=== PATIENT | male | born 1965 | race Caucasian/White ===

== ENCOUNTER 2017-05-24 19:18 | Emergency (ER) | payer OTHER ==
[~2017-05-24] VITALS: Ht 172.7 cm; Wt 63.5 kg
[~2017-05-24 19:18] MED LIST: DOXY100 PO; HYDACE5 PO; IBUP200
[2017-05-24 19:48] LABS: BASOPHILS ABSOLUTE AUTO 0.04 K/mm3 (0.00-0.23); BASOPHILS PERCENT AUTO 0 % (0-2); EOSINOPHILS ABSOLUTE AUTO 0.12 K/mm3 (0.00-0.68); EOSINOPHILS PERCENT AUTO 1 % (0-6); Hematocrit 40.4 % (37.0-53.0); IMMATURE GRAN ABSOLUTE AUTO 0.06 K/mm3 (0.00-0.10); IMMATURE GRAN PERCENT AUTO 1 % (0-1); LYMPHOCYTES ABSOLUTE AUTO 1.65 K/mm3 (0.84-5.20); LYMPHOCYTES PERCENT AUTO 16 % (21-46); MONOCYTES ABSOLUTE AUTO 1.16 K/mm3 (0.16-1.47); MONOCYTES PERCENT AUTO 12 % (4-13); Mean Corpuscular HGB Conc 32.2 g/dL (31.5-36.5); Mean Corpuscular Volume 93 fL (80-100); NEUTROPHILS ABSOLUTE AUTO 7.03 K/mm3 (1.96-9.15); NEUTROPHILS PERCENT AUTO 70 % (41-73); RDW Coefficient Variation 14.8 % (11.7-14.2); RDW Standard Deviation 51.1 fL (35.1-46.3); Red Blood Cell Count 4.34 M/mm3 (4.30-5.90); White Blood Cell Count 10.06 K/mm3 (4.00-11.30)
[2017-05-24 20:00] LABS: Platelet Count 48 K/mm3 (150-400)
[2017-05-24 20:03] LABS: Alanine Aminotransfer (ALT/SGP 104 U/L (12-78); Albumin, Blood 3.4 g/dL (3.4-5.0); Albumin/Globulin Ratio 0.8 (0.8-1.8); Alk Phos 63 U/L (50-136); Anion Gap 17 mmol/L (6-16); Aspartate Aminotrans (AST/SGOT 75 U/L (12-37); Bilirubin, Total 0.7 mg/dL (0.1-1.0); Blood Urea Nitrogen 7 mg/dL (8-24); Bun/Creatinine Ratio 9.3 (12.0-20.0); CO2, Blood 19 mmol/L (21-32); Calcium, Blood 9.4 mg/dL (8.5-10.1); Chloride, Blood 104 mmol/L (98-108); Creatinine, Blood 0.76 mg/dL (0.60-1.20); Globulin, Blood 4.5 g/dL (2.2-4.0); Glomerular Filtration Rate >60 (60-); Glucose, Blood 114 mg/dL (70-99); Potassium, Blood 3.3 mmol/L (3.5-5.5); Sodium, Blood 140 mmol/L (136-145); Total Protein, Blood 7.9 g/dL (6.4-8.2)
== END 2017-05-24 22:50 | disposition home or self-care (01) ==
LOC: ER 19:18
PROVIDERS: Emergency Medicine
DX: S01.01XA Laceration without foreign body of scalp, initial encounter (principal); E87.6 Hypokalemia; F10.239 Alcohol dependence with withdrawal, unspecified; W22.8XXA Striking against or struck by other objects, initial encounter
CPT/HCPCS: 12002; 70450; 80053; 82947; 85025; 93005; 93010; 99284

== ENCOUNTER 2017-06-08 08:27 | Emergency (ER) | payer OTHER ==
[~2017-06-08] VITALS: Ht 172.7 cm; Wt 65.8 kg
== END 2017-06-08 09:26 | disposition home or self-care (01) ==
LOC: ER 08:27
DX: S01.01XD Laceration without foreign body of scalp, subsequent encounter (principal); F17.200 Nicotine dependence, unspecified, uncomplicated; X58.XXXD Exposure to other specified factors, subsequent encounter
CPT/HCPCS: 99281

== ENCOUNTER 2020-03-18 15:02 | Emergency (ER) | payer OTHER ==
[~2020-03-18] VITALS: Ht 172.7 cm; Wt 65.8 kg
[2020-03-18] MEDS ORDERED: IBU800 MG PO (16:02)
[2020-03-18] MEDS ORDERED: HYDR1TAB94 PO (16:02)
== END 2020-03-18 16:14 | disposition home or self-care (01) ==
LOC: ER 15:02
DX: S82.62XA Displaced fracture of lateral malleolus of left fibula, initial encounter for closed fracture (principal); F17.210 Nicotine dependence, cigarettes, uncomplicated; X50.1XXA Overexertion from prolonged static or awkward postures, initial encounter; Y92.008 Other place in unspecified non-institutional (private) residence as the place of occurrence of the external cause
CPT/HCPCS: 29515; 73610; 99283-25; A9270-GY

== ENCOUNTER 2020-07-26 13:06 | Emergency (ER) | payer OTHER ==
[~2020-07-26] VITALS: Ht 172.7 cm; Wt 79.4 kg
[~2020-07-26 13:06] MED LIST changes: +HYDR1TAB94 PO; +IBU800 MG PO
[2020-07-26] MEDS ORDERED: Norco 5-325 Ta1 EACH PO (15:13)
== END 2020-07-26 15:30 | disposition home or self-care (01) ==
LOC: ER 13:06
DX: M54.2 Cervicalgia (principal); V29.9XXA Motorcycle rider (driver) (passenger) injured in unspecified traffic accident, initial encounter; V19.9XXA Pedal cyclist (driver) (passenger) injured in unspecified traffic accident, initial encounter; Y92.410 Unspecified street and highway as the place of occurrence of the external cause
CPT/HCPCS: 72040; 72100; 72170; 90471; 90714; 96374; 99284-25; J1885

== ENCOUNTER 2022-02-02 20:44 | Emergency (ER) | payer OTHER ==
[~2022-02-02] VITALS: Ht 172.7 cm; Wt 74.8 kg
[~2022-02-02 20:44] MED LIST changes: +Norco 5-325 Ta1 EACH PO
[2022-02-02 21:34] LABS: BASOPHILS ABSOLUTE AUTO 0.09 K/mm3 (0.00-0.23); BASOPHILS PERCENT AUTO 1 % (0-2); EOSINOPHILS ABSOLUTE AUTO 0.15 K/mm3 (0.00-0.68); EOSINOPHILS PERCENT AUTO 1 % (0-6); Hematocrit 36.7 % (37.0-53.0); Hemoglobin 11.5 g/dL (13.5-17.5); IMMATURE GRAN ABSOLUTE AUTO 0.15 K/mm3 (0.00-0.10); IMMATURE GRAN PERCENT AUTO 1 % (0-1); LYMPHOCYTES ABSOLUTE AUTO 1.94 K/mm3 (0.84-5.20); LYMPHOCYTES PERCENT AUTO 18 % (21-46); MONOCYTES ABSOLUTE AUTO 1.14 K/mm3 (0.16-1.47); MONOCYTES PERCENT AUTO 11 % (4-13); Mean Corpuscular HGB 29.3 pg (26.0-34.0); Mean Corpuscular HGB Conc 31.3 g/dL (31.5-36.5); Mean Corpuscular Volume 93 fL (80-100); Mean Platelet Volume 9.4 fL (9.1-12.4); NEUTROPHILS ABSOLUTE AUTO 7.18 K/mm3 (1.96-9.15); NEUTROPHILS PERCENT AUTO 68 % (41-73); Platelet Count 257 K/mm3 (150-400); RDW Coefficient Variation 16.2 % (11.7-14.2); RDW Standard Deviation 55.9 fL (35.1-46.3); Red Blood Cell Count 3.93 M/mm3 (4.30-5.90); White Blood Cell Count 10.65 K/mm3 (4.00-11.30)
[2022-02-02 21:53] LABS: Albumin, Blood 3.7 g/dL (3.4-5.0); Albumin/Globulin Ratio 0.9 (0.8-1.8); Bilirubin, Total 0.2 mg/dL (0.1-1.0); Bun/Creatinine Ratio 11.7 (12.0-20.0); Creatinine, Blood 0.6 mg/dL (0.60-1.20); Globulin, Blood 4.2 g/dL (2.2-4.0); Potassium, Blood 3.9 mmol/L (3.5-5.5); Total Protein, Blood 7.9 g/dL (6.4-8.2)
== END 2022-02-03 00:15 | disposition short-term general hospital (02) ==
LOC: ER 20:44
PROVIDERS: Emergency Medicine
DX: S02.0XXA Fracture of vault of skull, initial encounter for closed fracture (principal); S02.19XA Other fracture of base of skull, initial encounter for closed fracture; S06.5X0A Traumatic subdural hemorrhage without loss of consciousness, initial encounter; J44.9 Chronic obstructive pulmonary disease, unspecified; Z87.891 Personal history of nicotine dependence; W10.9XXA Fall (on) (from) unspecified stairs and steps, initial encounter; Y92.009 Unspecified place in unspecified non-institutional (private) residence as the place of occurrence of the external cause
CPT/HCPCS: 36415; 70450; 70486; 71045; 72125; 73030; 80053; 85025; 90714; 93005; 93010; G0480; J0690; J1170; J2405

== ENCOUNTER 2023-01-24 12:20 | Emergency (ER) | payer OTHER ==
[~2023-01-24] VITALS: Ht 172.7 cm; Wt 77.1 kg
[~2023-01-24 12:20] MED LIST changes: +CYCL10 PO; +IBUP200 PO
[2023-01-24 13:15] LABS: BASOPHILS ABSOLUTE AUTO 0.06 K/mm3 (0.00-0.23); BASOPHILS PERCENT AUTO 1 % (0-2); EOSINOPHILS ABSOLUTE AUTO 0.15 K/mm3 (0.00-0.68); EOSINOPHILS PERCENT AUTO 1 % (0-6); Hematocrit 38.2 % (37.0-53.0); Hemoglobin 11.6 g/dL (13.5-17.5); IMMATURE GRAN PERCENT AUTO 1 % (0-1); LYMPHOCYTES ABSOLUTE AUTO 0.93 K/mm3 (0.84-5.20); LYMPHOCYTES PERCENT AUTO 9 % (21-46); MONOCYTES PERCENT AUTO 8 % (4-13); Mean Corpuscular HGB 25.2 pg (26.0-34.0); Mean Corpuscular HGB Conc 30.4 g/dL (31.5-36.5); Mean Corpuscular Volume 83 fL (80-100); Mean Platelet Volume 9.5 fL (9.1-12.4); NEUTROPHILS ABSOLUTE AUTO 8.65 K/mm3 (1.96-9.15); NEUTROPHILS PERCENT AUTO 81 % (41-73); Platelet Count 267 K/mm3 (150-400); RDW Coefficient Variation 18.4 % (11.7-14.2); RDW Standard Deviation 55.6 fL (35.1-46.3); White Blood Cell Count 10.69 K/mm3 (4.00-11.30)
[2023-01-24 13:38] LABS: Alanine Aminotransfer (ALT/SGP 59 U/L (12-78); Albumin, Blood 3.7 g/dL (3.4-5.0); Albumin/Globulin Ratio 0.8 (0.8-1.8); Alk Phos 93 U/L (50-136); Anion Gap 5 mmol/L (6-16); Aspartate Aminotrans (AST/SGOT 53 U/L (12-37); Bilirubin, Total 0.3 mg/dL (0.1-1.0); Blood Urea Nitrogen 4 mg/dL (8-24); Bun/Creatinine Ratio 5.3 (12.0-20.0); CO2, Blood 28 mmol/L (21-32); Calcium, Blood 8.8 mg/dL (8.5-10.1); Chloride, Blood 108 mmol/L (98-108); Creatinine, Blood 0.75 mg/dL (0.60-1.20); Ethanol (Alcohol), Blood, Med <3 mg/dL; Globulin, Blood 4.5 g/dL (2.2-4.0); Glomerular Filtration Rate 105 (60-); Glucose, Blood 127 mg/dL (70-99); Magnesium, Blood 2.2 mg/dL (1.6-2.4); Potassium, Blood 3.6 mmol/L (3.5-5.5); Sodium, Blood 141 mmol/L (136-145); Total Protein, Blood 8.2 g/dL (6.4-8.2)
[2023-01-24 14:45] VITALS: BP 182/110
== END 2023-01-24 15:13 | disposition home or self-care (01) ==
LOC: ER 12:20
PROVIDERS: Student in an Organized Health Care Education/Training Program
DX: S00.83XA Contusion of other part of head, initial encounter (principal); I10 Essential (primary) hypertension; F10.20 Alcohol dependence, uncomplicated; R55 Syncope and collapse; W07.XXXA Fall from chair, initial encounter; Z87.891 Personal history of nicotine dependence
CPT/HCPCS: 70450; 73502; 80053; 83735; 83880; 84146; 84484; 85025; 93005; 93010; 96360; 96361; 99285-25; A9270; J7030

== ENCOUNTER 2023-02-26 09:20 | Observation (INO) | payer OTHER ==
[~2023-02-26] VITALS: Ht 177.8 cm; Wt 79.8 kg
[2023-02-26] VITALS (37 sets, daily range): BP systolic 112–164; BP diastolic 77–118
[2023-02-26 09:52] LABS: Source, Urine Clean Catch
[2023-02-26 10:03] LABS: BASOPHILS ABSOLUTE AUTO 0.04 K/mm3 (0.00-0.23); BASOPHILS PERCENT AUTO 1 % (0-2); EOSINOPHILS ABSOLUTE AUTO 0.04 K/mm3 (0.00-0.68); EOSINOPHILS PERCENT AUTO 1 % (0-6); Hematocrit 35.8 % (37.0-53.0); IMMATURE GRAN ABSOLUTE AUTO 0.04 K/mm3 (0.00-0.10); IMMATURE GRAN PERCENT AUTO 1 % (0-1); LYMPHOCYTES PERCENT AUTO 10 % (21-46); MONOCYTES PERCENT AUTO 10 % (4-13); Mean Corpuscular HGB 26.1 pg (26.0-34.0); Mean Corpuscular HGB Conc 30.7 g/dL (31.5-36.5); Mean Corpuscular Volume 85 fL (80-100); Mean Platelet Volume 11.9 fL (9.1-12.4); NEUTROPHILS ABSOLUTE AUTO 5.46 K/mm3 (1.96-9.15); NEUTROPHILS PERCENT AUTO 78 % (41-73); Platelet Count 117 K/mm3 (150-400); RDW Coefficient Variation 19.7 % (11.7-14.2); RDW Standard Deviation 60.2 fL (35.1-46.3); Red Blood Cell Count 4.21 M/mm3 (4.30-5.90); White Blood Cell Count 6.98 K/mm3 (4.00-11.30)
[2023-02-26 10:13] LABS: Appearance, Urine Clear (Clear); Bilirubin, Urine Neg (Neg); Blood, Urine 2+ (Neg); Glucose Qualitative, Urine Neg (Neg); Ketones, Urine 3+ (Neg); Leukocyte Esterase, Urine Neg (Neg); Nitrite, Urine Neg (Neg); Protein, Urine 2+ (Neg); Urobilinogen, Urine NORM (Normal)
[2023-02-26 10:16] LABS: Albumin, Blood 3.7 g/dL (3.4-5.0); Albumin/Globulin Ratio 0.8 (0.8-1.8); Bilirubin, Total 0.5 mg/dL (0.1-1.0); Bun/Creatinine Ratio 8.3 (12.0-20.0); Calcium, Blood 8.7 mg/dL (8.5-10.1); Creatinine, Blood 0.72 mg/dL (0.60-1.20); Globulin, Blood 4.4 g/dL (2.2-4.0); Magnesium, Blood 1.9 mg/dL (1.6-2.4); Potassium, Blood 3.5 mmol/L (3.5-5.5); Total Protein, Blood 8.1 g/dL (6.4-8.2)
[2023-02-26 10:21] LABS: Color, Urine Pale Yellow (P-Yellow)
[2023-02-26 10:22] LABS: Bacteria Rare /hpf; Squamous Epithelial Cells Not Seen /hpf (Few); White Blood Cells, Urine Not Seen /hpf (0-5)
[2023-02-26 10:27] LABS: U Amphetamine Screen Not Detected; U Barbituate Screen Not Detected; U Benzodiazapine Screen Not Detected; U Buprenorphine Screen Not Detected; U Cannabinoids Screen DETECTED; U Cocaine Screen Not Detected; U Methadone Screen Not Detected; U Methamphetamine Screen Not Detected; U Opiates Screen Not Detected; U Oxycodone Screen Not Detected; U Phencyclidine Screen Not Detected
--- NOTE | 2023-02-26 16:33 | NUR ---
ADMIT / SHIFT SUMMARY PT ARRIVED TO ICU 7 AT 1550 VIA ER BED. PT IS AWAKE, ALERT, AND ORIENTED UPON ARRIVAL. PT IS ABLE TO ANSWER QUESTIONS APPROPRIATELY AND FOLLOW COMMANDS. PT IS FORGETFUL AT TIMES. COMPLAINS OF MILD HEADACHE AND CHRONIC RIGHT HIP PAIN. PT DENIES BLURRED VISION, N/T. PT ARRIVES WITH NICARDIPINE GTT INFUSING AT 2.5 MG/HR. VITAL SIGNS STABLE. PT ON ROOM AIR. PT WITH CONDOM CATH IN PLACE WITH CLEAR YELLOW URINE OUTPUT NOTED. PT WITH SCATTERED ABRASIONS TO HEAD/FOREHEAD AND BRUISING/SCABS TO BUE AND BLE'S. PT DENIES ANY IGNITION SOURCES ON PERSON OR IN BELONGINGS UPON ADMIT. WILL CONTINUE TO MONITOR AND REPORT OFF TO ONCOMING RN.
--- NOTE | 2023-02-26 20:56 | NUR ---
ASSUMPTION OF CARE REPORT RECEIVED FROM DAYSHIFT RN. PT RESTING IN BED, ALERT AND ORIENTED. PT ANSWERS QUESTIONS APPROPRIATELY, FOLLOWS COMMANDS AND IS ABLE TO MAKE NEEDS KNOWN. PT DENIES PAIN, DIZZINESS, N/V, BLURRED VISION. HR 100'S SINUS TACH, NICARDIPINE INFUSING AT 2.5MG/HR TO MAINTAIN SBP <160. SBP 130'S-160'S. PT ON RA, OXYGEN SATURATION >90%. PT USES URINAL TO VOID. PIV TO LAC INFUSING. PIV TO RAC SL. BED IN LOWEST POSITION, CALL LIGHT WITHIN REACH. CARE CONTINUES.
[2023-02-27] VITALS (28 sets, daily range): BP systolic 139–172; BP diastolic 84–109
[2023-02-27 03:39] LABS: BASOPHILS ABSOLUTE AUTO 0.04 K/mm3 (0.00-0.23); BASOPHILS PERCENT AUTO 1 % (0-2); EOSINOPHILS ABSOLUTE AUTO 0.07 K/mm3 (0.00-0.68); EOSINOPHILS PERCENT AUTO 1 % (0-6); Hematocrit 35.6 % (37.0-53.0); Hemoglobin 11.3 g/dL (13.5-17.5); IMMATURE GRAN ABSOLUTE AUTO 0.04 K/mm3 (0.00-0.10); IMMATURE GRAN PERCENT AUTO 1 % (0-1); LYMPHOCYTES ABSOLUTE AUTO 0.84 K/mm3 (0.84-5.20); LYMPHOCYTES PERCENT AUTO 11 % (21-46); MONOCYTES ABSOLUTE AUTO 1.16 K/mm3 (0.16-1.47); MONOCYTES PERCENT AUTO 15 % (4-13); Mean Corpuscular HGB 26.2 pg (26.0-34.0); Mean Corpuscular HGB Conc 31.7 g/dL (31.5-36.5); Mean Corpuscular Volume 83 fL (80-100); NEUTROPHILS ABSOLUTE AUTO 5.81 K/mm3 (1.96-9.15); NEUTROPHILS PERCENT AUTO 73 % (41-73); Platelet Count 118 K/mm3 (150-400); RDW Coefficient Variation 19.6 % (11.7-14.2); RDW Standard Deviation 59.1 fL (35.1-46.3); Red Blood Cell Count 4.31 M/mm3 (4.30-5.90); White Blood Cell Count 7.96 K/mm3 (4.00-11.30)
[2023-02-27 04:00] LABS: Albumin, Blood 3.3 g/dL (3.4-5.0); Albumin/Globulin Ratio 0.8 (0.8-1.8); Bilirubin, Total 0.7 mg/dL (0.1-1.0); Bun/Creatinine Ratio 7.3 (12.0-20.0); Creatinine, Blood 0.69 mg/dL (0.60-1.20); Globulin, Blood 4.1 g/dL (2.2-4.0); Potassium, Blood 3.5 mmol/L (3.5-5.5); Total Protein, Blood 7.4 g/dL (6.4-8.2)
--- NOTE | 2023-02-27 05:49 | NUR ---
SHIFT SUMMARY PT RESTING IN BED, SLEEPING BUT AROUSABLE, ORIENTED X4. PT ANSWERS QUESTIONS APPROPRIATELY, ABLE TO MAKE NEED KNOWN. 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 PT DENIES PAIN, N/V, DIZZINESS OR LIGHT HEADEDNESS. PT HAS BEEN DIAPHORETIC THIS SHIFT. HR 80-90'S NSR, NICARDIPINE ON SB TO KEEP SBP <160. SBP RANGING BETWEEN 130-160'S. PT BEGAN TO DESAT TO THE LOW 80'S WHILE SLEEPING, PLACED ON 2LPM NC TO MAINTAIN OXYGEN SATURATION >92%. PT USES URINAL TO VOID. PIV TO RAC AND LAC SL. BED IN LOWEST POSITION, CALL LIGHT WITHIN REACH. CARE CONTINUES.
--- NOTE | 2023-02-27 14:26 | NUR ---
TRANSFER TO MEDICAL REPORT CALLED VIA PHONE. ALL QUESTIONS ANSWERED. PT TAKEN TO ROOM 356 VIA WHEELCHAIR. ALL PT BELONGINGS TAKEN WITH PT.
--- NOTE | 2023-02-27 15:14 | NUR ---
CALL TELEPHONE ORDER FROM DR AGUILERA TO [facility] CONTINUOUS PULSE OX ORDER ENTERED INTO [employer].
[2023-02-27] MEDS ORDERED: AMLO5 PO (16:17)
[2023-02-27] MEDS ORDERED: LEVE500 PO (16:18)
[2023-02-27] MEDS ORDERED: Prinivil10 MG PO (16:19)
[2023-02-27] MEDS ORDERED: B-1100 M1 PO (16:20)
--- NOTE | 2023-02-27 16:54 | NUR ---
DISCHARGE NOTE MR GLASS WAS TRANSFERED FROM ICU AT 1430 HRS. OX4. UP WALKING TO THE BATHROOM WITH WALKER, SOMEWHAT UNSTEADY GAIT. DENIED PAIN OR SOB. SZ PRECAUTIONS AND SCDS IN PLACE. DISCHARGED TO HOME AT 1658HRS. HE VERBALISED UNDERSTANDING OF WRITTEN AND VERBAL DISCHARGE INSTRUCTIONS. HE SPOKE TO JUVENILE [address] LIAISON ABOUT GETTING HOME HEALTH SET UP. HE AGREED TO GO TO [facility] TO P/U HIS PRESCRIPTIONS. W/C ESCORT TO EXIT AT 1658.
== END 2023-02-27 16:58 | disposition home health service (06) ==
LOC: ER 09:20 → ICUE 09:21 → MEDS 02-27 14:29
PROVIDERS: Family Medicine; Student in an Organized Health Care Education/Training Program; ADMIT Internal Medicine
DX: S06.5X9A Traumatic subdural hemorrhage with loss of consciousness of unspecified duration, initial encounter (principal); I10 Essential (primary) hypertension; Z79.899 Other long term (current) drug therapy; Z87.891 Personal history of nicotine dependence; W18.30XA Fall on same level, unspecified, initial encounter
CPT/HCPCS: 36415; 70450; 80053; 81001; 83735; 83880; 84146; 84484; 85025; 93005; 93010; 96361; 96365; 96366; 96368; 96375; 96376; 97110; 97161; 97530; 99285-25; A9270; G0378; J0360; J1953; J2060; J3411; J7030; J7050

== ENCOUNTER 2023-03-01 11:58 | Emergency (ER) | payer OTHER ==
[~2023-03-01] VITALS: Ht 170.2 cm; Wt 65.8 kg
[~2023-03-01 11:58] MED LIST changes: +AMLO5 PO; +B-1100 M1 PO; +LEVE500 PO; +Prinivil10 MG PO
[2023-03-01 12:43] LABS: BASOPHILS ABSOLUTE AUTO 0.08 K/mm3 (0.00-0.23); BASOPHILS PERCENT AUTO 1 % (0-2); EOSINOPHILS ABSOLUTE AUTO 0.12 K/mm3 (0.00-0.68); EOSINOPHILS PERCENT AUTO 1 % (0-6); Hematocrit 39.6 % (37.0-53.0); Hemoglobin 11.9 g/dL (13.5-17.5); IMMATURE GRAN ABSOLUTE AUTO 0.12 K/mm3 (0.00-0.10); IMMATURE GRAN PERCENT AUTO 1 % (0-1); LYMPHOCYTES ABSOLUTE AUTO 1.53 K/mm3 (0.84-5.20); LYMPHOCYTES PERCENT AUTO 10 % (21-46); MONOCYTES ABSOLUTE AUTO 1.77 K/mm3 (0.16-1.47); MONOCYTES PERCENT AUTO 12 % (4-13); Mean Corpuscular HGB 26.7 pg (26.0-34.0); Mean Corpuscular HGB Conc 30.1 g/dL (31.5-36.5); NEUTROPHILS ABSOLUTE AUTO 11.04 K/mm3 (1.96-9.15); NEUTROPHILS PERCENT AUTO 75 % (41-73); RDW Coefficient Variation 19.9 % (11.7-14.2); RDW Standard Deviation 63.4 fL (35.1-46.3); Red Blood Cell Count 4.46 M/mm3 (4.30-5.90); White Blood Cell Count 14.66 K/mm3 (4.00-11.30)
[2023-03-01 12:44] LABS: Mean Corpuscular Volume 89 fL (80-100); Mean Platelet Volume 11.3 fL (9.1-12.4); Platelet Count 193 K/mm3 (150-400)
[2023-03-01 12:51] LABS: International Normalized Ratio 1.06; Prothrombin Time Results 11.1 Sec (9.7-11.5)
[2023-03-01 13:07] LABS: Ethanol (Alcohol), Blood, Med <3 mg/dL
[2023-03-01 13:11] LABS: Alanine Aminotransfer (ALT/SGP 58 U/L (12-78); Albumin, Blood 3.8 g/dL (3.4-5.0); Albumin/Globulin Ratio 0.7 (0.8-1.8); Alk Phos 69 U/L (50-136); Anion Gap 14 mmol/L (6-16); Aspartate Aminotrans (AST/SGOT 96 U/L (12-37); Bilirubin, Total 0.6 mg/dL (0.1-1.0); Blood Urea Nitrogen 11 mg/dL (8-24); Bun/Creatinine Ratio 15.6 (12.0-20.0); CO2, Blood 17 mmol/L (21-32); Chloride, Blood 104 mmol/L (98-108); Creatinine, Blood 0.71 mg/dL (0.60-1.20); Globulin, Blood 5.3 g/dL (2.2-4.0); Glomerular Filtration Rate 106 (60-); Glucose, Blood 129 mg/dL (70-99); Potassium, Blood 4.7 mmol/L (3.5-5.5); Sodium, Blood 135 mmol/L (136-145); Total Protein, Blood 9.1 g/dL (6.4-8.2)
[2023-03-01 17:43] VITALS: BP 156/97
[2023-03-01 18:12] LABS: U Amphetamine Screen Not Detected; U Barbituate Screen Not Detected; U Benzodiazapine Screen DETECTED; U Buprenorphine Screen Not Detected; U Cannabinoids Screen DETECTED; U Cocaine Screen Not Detected; U Methadone Screen Not Detected; U Methamphetamine Screen Not Detected; U Opiates Screen Not Detected; U Oxycodone Screen Not Detected; U Phencyclidine Screen Not Detected
== END 2023-03-01 17:58 | disposition short-term general hospital (02) ==
LOC: ER 11:58
PROVIDERS: Emergency Medicine
DX: R56.9 Unspecified convulsions (principal); I60.9 Nontraumatic subarachnoid hemorrhage, unspecified; I62.00 Nontraumatic subdural hemorrhage, unspecified; F10.139 Alcohol abuse with withdrawal, unspecified; R79.89 Other specified abnormal findings of blood chemistry; Z87.891 Personal history of nicotine dependence
CPT/HCPCS: 70450; 70496; 70498; 80053; 85025; 85610; 85730; 93005; 93010; 96361; 96365-59; 96367; 96375-59; 99285-25; J1953; J2060; J3411; J7030; J7050; Q9967

== ENCOUNTER 2023-11-09 14:02 | Day surgery (SDC) | payer OTHER ==
[~2023-11-09] VITALS: Ht 172.7 cm; Wt 71.1 kg
[~2023-11-09 14:02] MED LIST changes: +ACET500 PO; +ASPI81CH PO; +Atropine Sulfate 0.1 MG/ML 10ML SYR ONE; +Cyclobenzaprine5 MG PO; +Glycopyrrolate 0.2 MG/ML 1MLVIAL ONE; +Lactated Ringer's 1,000 ML IV ONE; +Lidocaine 2% 5 ML SDV ONE; +Lidocaine HCl/Pf 1% 5 ML VIAL ONE; +MUPIROCIN2210 TOP; +Methylene Blue 1% 100 MG/10 ML VIAL ONE; +Ondansetron HCl 2 MG / ML 2ML Vial ONE; +ePHEDrine Sulfate 50 MG/ML 1ML Injection ONE
[2023-11-09] MEDS ORDERED: AMLO5 (14:26)
[2023-11-09] MEDS ORDERED: LISI20 (14:26)
[2023-11-09] MEDS ORDERED: MOBIC15 MG (14:27)
[2023-11-09] MEDS ORDERED: Lactated Ringer's 1,000 ML IV ONE (15:00)
[2023-11-09] MEDS ORDERED: propofoL 50 ML IV ONE ×2 (15:41→16:11)
[2023-11-09 17:29] VITALS: BP 132/87
== END 2023-11-09 17:18 | disposition home or self-care (01) ==
LOC: ORSCSDS 14:02
PROVIDERS: Internal Medicine Gastroenterology
PROC: 0DBL8ZX Excision of Transverse Colon, Via Natural or Artificial Opening Endoscopic, Diagnostic (ICD-10-PCS; principal; 2023-11-09 15:00)
DX: R19.5 Other fecal abnormalities (principal); D12.3 Benign neoplasm of transverse colon; K57.30 Diverticulosis of large intestine without perforation or abscess without bleeding; I10 Essential (primary) hypertension; J44.9 Chronic obstructive pulmonary disease, unspecified; K70.9 Alcoholic liver disease, unspecified; Z79.899 Other long term (current) drug therapy; Z87.891 Personal history of nicotine dependence
CPT/HCPCS: 88305; J0461; J2001; J2405; J2704; J7120; Q9968

== ENCOUNTER 2024-01-19 16:09 | Emergency (ER) | payer OTHER ==
[~2024-01-19] VITALS: Ht 172.7 cm; Wt 68.0 kg
[~2024-01-19 16:09] MED LIST changes: +AMLO5; -Atropine Sulfate 0.1 MG/ML 10ML SYR ONE; -Glycopyrrolate 0.2 MG/ML 1MLVIAL ONE; +LISI20; -Lactated Ringer's 1,000 ML IV ONE; -Lidocaine 2% 5 ML SDV ONE; -Lidocaine HCl/Pf 1% 5 ML VIAL ONE; +MOBIC15 MG; -Methylene Blue 1% 100 MG/10 ML VIAL ONE; -Ondansetron HCl 2 MG / ML 2ML Vial ONE; -ePHEDrine Sulfate 50 MG/ML 1ML Injection ONE
[2024-01-19] MEDS ORDERED: LevETIRAcetam 500 MG Tab PO ONE (19:05)
[2024-01-19] MEDS ORDERED: Acetaminophen 325 MG TABLET PO ONE (19:05)
[2024-01-19 19:11] LABS: BASOPHILS ABSOLUTE AUTO 0.03 K/mm3 (0.00-0.23); BASOPHILS PERCENT AUTO 0 % (0-2); EOSINOPHILS ABSOLUTE AUTO 0.01 K/mm3 (0.00-0.68); EOSINOPHILS PERCENT AUTO 0 % (0-6); Hematocrit 38.2 % (37.0-53.0); Hemoglobin 11.8 g/dL (13.5-17.5); IMMATURE GRAN ABSOLUTE AUTO 0.05 K/mm3 (0.00-0.10); IMMATURE GRAN PERCENT AUTO 1 % (0-1); LYMPHOCYTES PERCENT AUTO 3 % (21-46); MONOCYTES ABSOLUTE AUTO 0.76 K/mm3 (0.16-1.47); MONOCYTES PERCENT AUTO 8 % (4-13); Mean Corpuscular HGB 25.7 pg (26.0-34.0); Mean Corpuscular HGB Conc 30.9 g/dL (31.5-36.5); Mean Corpuscular Volume 83 fL (80-100); NEUTROPHILS ABSOLUTE AUTO 9.02 K/mm3 (1.96-9.15); NEUTROPHILS PERCENT AUTO 89 % (41-73); Platelet Count 187 K/mm3 (150-400); RDW Coefficient Variation 18.4 % (11.7-14.2); White Blood Cell Count 10.17 K/mm3 (4.00-11.30)
[2024-01-19 19:21] LABS: Albumin, Blood 3.6 g/dL (3.4-5.0); Albumin/Globulin Ratio 0.9 (0.8-1.8); Bun/Creatinine Ratio 12.3 (12.0-20.0); Calcium, Blood 9.1 mg/dL (8.5-10.1); Creatinine, Blood 0.73 mg/dL (0.60-1.20); Globulin, Blood 3.9 g/dL (2.2-4.0); Magnesium, Blood 1.8 mg/dL (1.6-2.4); Potassium, Blood 3.9 mmol/L (3.5-5.5); Total Protein, Blood 7.5 g/dL (6.4-8.2)
[2024-01-19] MEDS ORDERED: Ketorolac Tromethamine 15mg Vial IV ONE (20:45)
[2024-01-19 21:01] LABS: Source, Urine Clean Catch
[2024-01-19 21:03] LABS: Appearance, Urine Clear (Clear); Bilirubin, Urine Neg (Neg); Blood, Urine 1+ (Neg); Color, Urine Yellow (P-Yellow); Glucose Qualitative, Urine 2+ (Neg); Ketones, Urine 3+ (Neg); Leukocyte Esterase, Urine Neg (Neg); Nitrite, Urine Neg (Neg); Protein, Urine 2+ (Neg); Urobilinogen, Urine NORM (Normal)
[2024-01-19] MEDS ORDERED: Mag Hydrox/AL Hydrox/Simeth 30 ML UDC PO ONE (21:05)
[2024-01-19 21:14] LABS: Bacteria Few /hpf; Hyaline Casts 0-2 /lpf (0-2); Mucus Light (0-Heavy); Squamous Epithelial Cells Rare /hpf (Few); White Blood Cells, Urine 0-2 /hpf (0-5)
[2024-01-19] MEDS ORDERED: LEVE500 PO (21:53)
[2024-01-19 22:19] VITALS: BP 154/92
== END 2024-01-19 22:23 | disposition home or self-care (01) ==
LOC: ER 16:09
PROVIDERS: Student in an Organized Health Care Education/Training Program
DX: G40.409 Other generalized epilepsy and epileptic syndromes, not intractable, without status epilepticus (principal); I10 Essential (primary) hypertension; Z91.148 Patient's other noncompliance with medication regimen for other reason; Z91.81 History of falling; Z87.820 Personal history of traumatic brain injury; Z79.82 Long term (current) use of aspirin; Z79.899 Other long term (current) drug therapy; Z87.891 Personal history of nicotine dependence
CPT/HCPCS: 51798; 80053; 81001; 83735; 84484; 85025; 93005; 93010; 96374; 99284-25; A9270; J1885

== ENCOUNTER 2024-06-09 18:16 | Emergency (ER) | payer OTHER ==
[~2024-06-09] VITALS: Ht 172.7 cm; Wt 72.6 kg
[2024-06-09 18:20] VITALS: BP 160/95
[2024-06-09] MEDS ORDERED: CeFAZolin Sodium 1,000 MG in NS 50 ML IV ONE (18:30)
[2024-06-09 18:50] LABS: BASOPHILS ABSOLUTE AUTO 0.04 K/mm3 (0.00-0.23); BASOPHILS PERCENT AUTO 0 % (0-2); EOSINOPHILS ABSOLUTE AUTO 0.02 K/mm3 (0.00-0.68); EOSINOPHILS PERCENT AUTO 0 % (0-6); Hematocrit 29.1 % (37.0-53.0); Hemoglobin 8.5 g/dL (13.5-17.5); IMMATURE GRAN ABSOLUTE AUTO 0.09 K/mm3 (0.00-0.10); IMMATURE GRAN PERCENT AUTO 1 % (0-1); LYMPHOCYTES ABSOLUTE AUTO 1.02 K/mm3 (0.84-5.20); LYMPHOCYTES PERCENT AUTO 11 % (21-46); MONOCYTES PERCENT AUTO 6 % (4-13); Mean Corpuscular HGB 23.7 pg (26.0-34.0); Mean Corpuscular HGB Conc 29.2 g/dL (31.5-36.5); Mean Corpuscular Volume 81 fL (80-100); Mean Platelet Volume 10.3 fL (9.1-12.4); NEUTROPHILS ABSOLUTE AUTO 7.96 K/mm3 (1.96-9.15); NEUTROPHILS PERCENT AUTO 82 % (41-73); Platelet Count 156 K/mm3 (150-400); RDW Coefficient Variation 19.5 % (11.7-14.2); RDW Standard Deviation 56.6 fL (35.1-46.3); Red Blood Cell Count 3.59 M/mm3 (4.30-5.90); White Blood Cell Count 9.73 K/mm3 (4.00-11.30)
[2024-06-09] MEDS ORDERED: NS 1,000 ML IV ONE (19:09)
[2024-06-09] MEDS ORDERED: FERROUS SULFAT325 M3 PO (21:06)
[2024-06-09] MEDS ORDERED: CEPH500 PO (21:06)
== END 2024-06-09 21:50 | disposition home or self-care (01) ==
LOC: ER 18:16
PROVIDERS: Emergency Medicine
DX: S51.811A Laceration without foreign body of right forearm, initial encounter (principal); W22.8XXA Striking against or struck by other objects, initial encounter; Z87.891 Personal history of nicotine dependence
CPT/HCPCS: 12002; 73090; 85025; 96365-59; 99283-25; J0690; J7030

== ENCOUNTER 2025-03-23 16:32 | Inpatient (IN) | payer OTHER ==
[2025-03-23] VITALS (9 sets, daily range): BP systolic 151–175; BP diastolic 84–108
[~2025-03-23] VITALS: Ht 172.7 cm; Wt 71.1 kg
[~2025-03-23 16:32] MED LIST changes: +CEPH500 PO; +FERROUS SULFAT325 M3 PO; +FERSU300 PO; +FOLI1 PO; +KOURZEQ5 GM DT; +LISI20 PO; +PANT40 PO; +Thiamine HCl100 MG PO
[2025-03-23 17:13] LABS: BASOPHILS ABSOLUTE AUTO 0.05 K/mm3 (0.00-0.23); BASOPHILS PERCENT AUTO 1 % (0-2); EOSINOPHILS ABSOLUTE AUTO 0.01 K/mm3 (0.00-0.68); EOSINOPHILS PERCENT AUTO 0 % (0-6); Hematocrit 34.5 % (37.0-53.0); Hemoglobin 10.4 g/dL (13.5-17.5); IMMATURE GRAN ABSOLUTE AUTO 0.07 K/mm3 (0.00-0.10); IMMATURE GRAN PERCENT AUTO 1 % (0-1); LYMPHOCYTES ABSOLUTE AUTO 0.54 K/mm3 (0.84-5.20); LYMPHOCYTES PERCENT AUTO 7 % (21-46); MONOCYTES ABSOLUTE AUTO 0.65 K/mm3 (0.16-1.47); MONOCYTES PERCENT AUTO 8 % (4-13); Mean Corpuscular HGB Conc 30.1 g/dL (31.5-36.5); Mean Corpuscular Volume 84 fL (80-100); NEUTROPHILS ABSOLUTE AUTO 6.53 K/mm3 (1.96-9.15); NEUTROPHILS PERCENT AUTO 83 % (41-73); NRBC ABSOLUTE 0.00 K/mm3 (0.00-0.02); NRBC Auto 0.0 /100 WBC (0.0-0.2); Platelet Count 78 K/mm3 (150-400); RDW Coefficient Variation 18.6 % (11.7-14.2); RDW Standard Deviation 56.4 fL (35.1-46.3)
[2025-03-23] MEDS ORDERED: LORazepam 2 MG/ML 1ML Injection ONE ×2 (17:23→19:16)
[2025-03-23 17:27] LABS: Alanine Aminotransfer (ALT/SGP 88.0 U/L (12-78); Albumin, Blood 4.0 g/dL (3.4-5.0); Albumin/Globulin Ratio 1.1 (0.8-1.8); Anion Gap 24.0 mmol/L (3-11); Aspartate Aminotrans (AST/SGOT 106.0 U/L (12-37); Bilirubin, Total 0.7 mg/dL (0.1-1.0); Blood Urea Nitrogen 7.0 mg/dL (8-24); CO2, Blood 13.0 mmol/L (21-32); Calcium, Blood 8.6 mg/dL (8.5-10.1); Chloride, Blood 101.0 mmol/L (98-108); Creatinine, Blood 0.74 mg/dL (0.60-1.20); Globulin, Blood 3.6 g/dL (2.2-4.0); Glucose, Blood 113.0 mg/dL (70-99); Potassium, Blood 3.3 mmol/L (3.5-5.5); Sodium, Blood 135.0 mmol/L (136-145); Total Protein, Blood 7.6 g/dL (6.4-8.2)
[2025-03-23] MEDS ORDERED: LORazepam 2 MG/ML 1ML Injection IV ONE ×3 (17:35→19:20)
[2025-03-23] MEDS ORDERED: Diazepam 5 MG / ML 2ML SYR ONE (17:37)
[2025-03-23] MEDS ORDERED: Diazepam 5 MG / ML 2ML SYR IV ONE (17:55)
[2025-03-23 19:13] LABS: Salicylate <1.7 mg/dL (2.8-20.0)
[2025-03-23] MEDS ORDERED: Ondansetron HCl 2 MG / ML 2ML Vial IV PRN (19:30)
[2025-03-23] MEDS ORDERED: Metoclopramide HCl 5MG / ML 2ML Vial IV PRN (19:30)
[2025-03-23] MEDS ORDERED: LORazepam 2 MG/ML 1ML Injection IV PRN ×3 (19:35)
[2025-03-23] MEDS ORDERED: FLU VACC TS2025-26(6MOS UP)/PF 45 MCG/0.5 ML SYRINGE IM SCH (19:35)
[2025-03-23] MEDS ORDERED: Labetalol HCL 5 MG/ML 4ML Injection (Single Dose) IV PRN (19:40)
[2025-03-23] MEDS ORDERED: Albuterol 2.5 MG/3 ML VIAL INH PRN (19:40)
[2025-03-23] MEDS ORDERED: NS 1,000 ML IV SCH ×2 (19:40→20:00)
[2025-03-24] VITALS (28 sets, daily range): BP systolic 130–162; BP diastolic 77–131
[2025-03-24 03:34] LABS: Hematocrit 30.0 % (37.0-53.0); Hemoglobin 9.6 g/dL (13.5-17.5); Mean Corpuscular HGB Conc 32.0 g/dL (31.5-36.5); Mean Corpuscular Volume 80 fL (80-100); NRBC ABSOLUTE 0.00 K/mm3 (0.00-0.02); NRBC Auto 0.0 /100 WBC (0.0-0.2); RDW Coefficient Variation 18.7 % (11.7-14.2); RDW Standard Deviation 54.3 fL (35.1-46.3)
[2025-03-24 03:41] LABS: Platelet Count 48 K/mm3 (150-400)
[2025-03-24 03:55] LABS: Alanine Aminotransfer (ALT/SGP 73.0 U/L (12-78); Albumin, Blood 3.3 g/dL (3.4-5.0); Albumin/Globulin Ratio 0.9 (0.8-1.8); Anion Gap 9.0 mmol/L (3-11); Aspartate Aminotrans (AST/SGOT 74.0 U/L (12-37); Bilirubin, Total 1.1 mg/dL (0.1-1.0); Blood Urea Nitrogen 7.0 mg/dL (8-24); CO2, Blood 25.0 mmol/L (21-32); Calcium, Blood 8.1 mg/dL (8.5-10.1); Chloride, Blood 104.0 mmol/L (98-108); Creatinine, Blood 0.73 mg/dL (0.60-1.20); Globulin, Blood 3.6 g/dL (2.2-4.0); Glucose, Blood 116.0 mg/dL (70-99); Magnesium, Blood 1.8 mg/dL (1.6-2.4); Potassium, Blood 3.7 mmol/L (3.5-5.5); Sodium, Blood 134.0 mmol/L (136-145); Total Protein, Blood 6.9 g/dL (6.4-8.2)
[2025-03-24] MEDS ORDERED: Pantoprazole Sodium 40 MG Injection IV SCH (06:00)
[2025-03-24] MEDS ORDERED: Enoxaparin 40 MG/0.4 ML SYR SC SCH (09:00)
--- NOTE | 2025-03-24 09:06 | NUR ---
AM NOTE PT IS ALERT TO SELF, PLACE AND SITUATION. HE ANSWERS QUESTIONS APPROPRIATELY AND IS ABLE TO FOLLOW COMMANDS. HE HAS BEEN IN BED W/ SIEZURE PRECAUTIONS THIS AM. HEART RATE AND BLOOD PRESSURE STABLE, HE IS ON ROOM AIR WITH SPO2 >96%. HE DENIES FEELING SHORT OF BREATH. HE HAS HAD GOOD PO INTAKE AND IS INDEPENDENT WITH EATING. BED ALARM IS ON, CALL LIGHT IS WITHIN REACH.
--- NOTE | 2025-03-24 10:46 | NUR ---
CARE NOTE THIS RN PROVIDED PATIENTS BROTHER TARA UPDATES REGARDING STATUS AT APPROX. 1000 VIA TELEPHONE.
--- NOTE | 2025-03-24 12:15 | NUR ---
CARE NOTE PT IS SOMNOLENT BUT WAKES EASILY TO VERBAL STIMULI. HE DENIED LUNCH TRAY AT APPROX. 1130, TRAY IS HELD IN PANTRY. PLEASE SEE CIWA SCORE FOR ALCOHOL WITHDRAWAL ASSESSMENT. PT APPEARED TO FALL BACK ASLEEP AND APPEARS TO BE RESTING COMFORTABLY.
--- NOTE | 2025-03-24 16:02 | NUR ---
TRANSFER OF CARE NOTE THIS RN PROVIDED MEDICAL FLOOR NURSE ROSALIA GONZALEZ REPORT AND TRANSFERRED PT AT APPROX. 1555 VIA HOSPITAL BED. SPO2 >95% VIA RA. BP AND HR STABLE. HE DENIED FEELINGS OF NAUSEA, VOMITTING, CHEST PAIN OR PRESSURE AND SHORTNESS OF BREATH. THIS RN CHANGED LEFT FOREARM DRESSING BEFORE TRANSFER OF CARE. ALSO PLEASE [facility] FOR ALCOHOL WITHDRAWAL ASSESSMENT. PATIENT WAS TRANSFERRED W/ ALL OF PERSONAL BELONGINGS INCLUDING HIS UPPER DENTURES WHICH HE WAS WEARING.
--- NOTE | 2025-03-24 17:22 | NUR ---
1555- PT ARRIVED TO MEDICAL FLOOR IN STABLE CONDITION AFTER RECIEVING REPORT FROM ICU4, RN.
--- NOTE | 2025-03-24 18:35 | NUR ---
SUMMARY- PT AAOX1 SINCE TRANSFER TO MEDICAL FLOOR. CIWA SCORE=8 FOR LAST CIWA. GIVEN 1MG ATIVAN IV-HELPED DECREASE WD SYMPTOMS. PT IS IMPULSIVE AND DOES NOT USE CALL LIGHT APPROPRIATELY TO CALL FOR HELP. PT ON RA. BEDREST, PT IS TOO WEAK TO USE BSC. PT DENIES ANY PAIN THIS SHIFT. NO ACUTE EVENTS THIS SHIFT.
[2025-03-25 03:56] VITALS: BP 136/91
--- NOTE | 2025-03-25 05:04 | NUR ---
SHIFT SUMMARY NOC PT A/O X 2. CONFUSED BUT COOPERATIVE WITH CARE. CIWA'S 4-10 WITH 50 MG LIBRIUM AND 2 IV ATIVAN GIVEN. VSS. ON TELE SINUS RHYTHM IN 90'S-100'S. PT ABLE TO AMBULATE WITH 1PA/FWW TO BATHROOM. SEIZURE PRECAUTIONS IN PLACE. PT CURRENTLY RESTING WITH BED ALARM ON, BED IN LOWEST POSITION, AND CALL LIGHT WITHIN REACH.
[2025-03-25 06:38] LABS: BASOPHILS ABSOLUTE AUTO 0.03 K/mm3 (0.00-0.23); BASOPHILS PERCENT AUTO 1 % (0-2); EOSINOPHILS ABSOLUTE AUTO 0.20 K/mm3 (0.00-0.68); EOSINOPHILS PERCENT AUTO 3 % (0-6); Hematocrit 31.6 % (37.0-53.0); Hemoglobin 9.8 g/dL (13.5-17.5); IMMATURE GRAN ABSOLUTE AUTO 0.03 K/mm3 (0.00-0.10); IMMATURE GRAN PERCENT AUTO 1 % (0-1); LYMPHOCYTES ABSOLUTE AUTO 0.87 K/mm3 (0.84-5.20); LYMPHOCYTES PERCENT AUTO 14 % (21-46); MONOCYTES ABSOLUTE AUTO 0.76 K/mm3 (0.16-1.47); MONOCYTES PERCENT AUTO 12 % (4-13); Mean Corpuscular HGB Conc 31.0 g/dL (31.5-36.5); Mean Corpuscular Volume 82 fL (80-100); NEUTROPHILS ABSOLUTE AUTO 4.23 K/mm3 (1.96-9.15); NEUTROPHILS PERCENT AUTO 69 % (41-73); NRBC ABSOLUTE 0.00 K/mm3 (0.00-0.02); NRBC Auto 0.0 /100 WBC (0.0-0.2); Platelet Count 60 K/mm3 (150-400); RDW Coefficient Variation 18.6 % (11.7-14.2); RDW Standard Deviation 55.1 fL (35.1-46.3)
[2025-03-25 06:46] LABS: Prothrombin Time Results 12.5 Sec (9.7-11.5)
[2025-03-25 07:08] LABS: Alanine Aminotransfer (ALT/SGP 52.0 U/L (12-78); Albumin, Blood 3.5 g/dL (3.4-5.0); Albumin/Globulin Ratio 1.1 (0.8-1.8); Anion Gap 9.0 mmol/L (3-11); Aspartate Aminotrans (AST/SGOT 35.0 U/L (12-37); Bilirubin, Total 0.9 mg/dL (0.1-1.0); Blood Urea Nitrogen 5.0 mg/dL (8-24); CO2, Blood 23.0 mmol/L (21-32); Calcium, Blood 8.6 mg/dL (8.5-10.1); Chloride, Blood 103.0 mmol/L (98-108); Creatinine, Blood 0.67 mg/dL (0.60-1.20); Globulin, Blood 3.3 g/dL (2.2-4.0); Glucose, Blood 87.0 mg/dL (70-99); Potassium, Blood 3.6 mmol/L (3.5-5.5); Sodium, Blood 131.0 mmol/L (136-145); Total Protein, Blood 6.8 g/dL (6.4-8.2)
[2025-03-25 07:50] VITALS: BP 156/106
[2025-03-25] MEDS ORDERED: NS 250 ML IV PRN (08:00)
[2025-03-25 15:22] VITALS: BP 127/82
--- NOTE | 2025-03-25 17:27 | NUR ---
SUMMARY- AAOX3 TODAY. IMPROVED FROM YESTERDAY. CIWA SCORE= 6-8 THIS SHIFT AND PT HAS ONLY REQUIRED 50MG LIBRIUM X2 FOR DAY SHIFT. PT SHOWERED THIS SHIFT AND PERFORMED ADLS, BUT WAS VERY UNSTEADY ON HIS FEET AND NOT SAFE TO LEAVE ALONE. X1 ASSIST WITH WALKER AND GAIT BELT. PT ON RA. GOOD APPETITE. NO ACUTE EVENTS THIS SHIFT.
[2025-03-25 19:28] VITALS: BP 131/88
[2025-03-25 23:33] VITALS: BP 140/80
--- NOTE | 2025-03-26 03:58 | NUR ---
COVERING FOR BREAK, THIS RN IS TOLD BY PT "I AM DONE WITH THIS" - PULLING TELE OFF. NOTIFIED TELE THAT PT IS REFUSING THE TELE MONITOR AND I WILL RELAY THIS TO PRIMARY NURSE, KIMBERLY. PT THEN IN ROOM, SAYS OUT LOUD "I AM GOING TO GET A GUN AND COME BACK AND START SHOOTING PEOPLE." NOTIFIED CALEB CALVERT, AND JAQUELINE DE LA CRUZ ORIENTEE AND THEN KIMBERLY, PRIMARY RN. NEHAL IN ROOM TALKING TO PT. DOROTHY IN ROOM, ALSO.
--- NOTE | 2025-03-26 04:25 | NUR ---
HOSPITALIST NOTIFIED THAT PT WAS THREATENING TO LEAVE AMA AND GO HOME TO GRAB A [employer]APON TO SHOOT EVERYONE ON THE FLOOR AND THAT PT WAS DEESCALATED AND AGREED TO STAY UNTIL MD ROUNDS IN AM. TELEMETRY DC AFTER PT REFUSED TO WEAR IT ANYMORE. WILL CONTINUE WITH IV ATIVAN FOR CIWA WD IF PT WILL ALLOW IT.
--- NOTE | 2025-03-26 05:08 | NUR ---
HOSPITALIST NOTIFIED THAT PT WAS WANTING TO LEAVE AMA AND HAD QUESTIONABLE COGNITIVE ABITLITY TO MAKE DECISION TO AMA. HOSPITALIST CAME TO ASSESS PT COGNITIVE ABILITY AND PT JUMPED OOB AND ATTEMPTED TO LEAVE THROUGH THE BATHROOM DOOR THINKING THAT IT WAS THE FRONT DOOR, THEN LEFT ROOM AND WALKED DOWN THE HALLWAR TESTING DOORS TO SEE IF THEY WERE THE WAY OUT. HOSPITALIST GAVE ORDERS TO PUT PT INTO LOCKED BL WRIST RESTRAINTS, AND TO GIVE ONE TIME IM HALODOL 5 MG DOSE. HOSPITALIST ALSO GAVE INSTRUCTIONS FOR RN TO NOTIFY THEM IF HALDOL DOES NOT WORK FOR POSSIBLE TRANSFER TO HIGHER LEVEL OF CARE.
[2025-03-26] MEDS ORDERED: Haloperidol Lactate Inj. 5 MG/ML Injection IM ONE (05:10)
--- NOTE | 2025-03-26 06:28 | NUR ---
SHIFT SUMMARY NOC PT A/O X 3. CONFUSED AND FORGETFUL AT TIMES. VSS. CIWAS 4-8 AND MEDICATED PER CIWA PROTOCOL. PT KEPT TURNING OFF BED ALARM AND PT EDUCATED ON RATIONALE FOR THEIR SAFETY, BUT CONTIUED TO DO SO. PANEL WAS SECURED FINALLY SO PT COULD NOT DISARM BED ALARM. PT THEN LATER STARTED TO GET AGITATED AGAIN AND GIVEN 2 IV ATIVAN WHICH DID NOT RESOLVE ANYTHING, AT WHICH POINT PT RIPPED OFF TELE AND THREATENED TO KILL NURSING STAFF WITH GUN AFTER GOING HOME FIRST. PT WA DEESCALETED AND AGREED TO STAY, BUT SHORTLY AFTER PULLED IV ACCESS AND THREATENED TO KILL STAFF AGAIN. HOSPITALIST NOTIFIED OF BOTH INCIDENTS AND IV AND TELE DC. HOSPITALIST CAME TO FLOOR TO ASSESS PT AT WHICH POINT AFTER FIRST QUESTION PT BECAME HIGHLY AGITATED AND MORE CONFUSED THEN BEFORE AND JUMPED OUT OF BED AND YELLED AT MD AN RN AND WALKED OUT OF ROOM AFTER THINKING BATHROOM WAS FRONT DOOR OUT OF FACILITY. HOSPITALIST THEN GAVE ORDERS TO PLACE PT IN BL WRIST RESTRAINTS AND TO GIVE IM HALDOL 5 MG X 1. ORDERS GIVEN TO NOTIFY MD IF PT BECOMES MORE UNSTABLE BEHAVIURS FOR POSSIBLE TRANSFER TO HIGHER LEVEL OF CARE. PT STILL UNSTEADY WHEN AMBULATING AND NEEDS TO BE CUED TO USE FWW. PT CURRENTLY RESTING WITH BED ALARM ON, BED IN LOWEST POSITION, AND CALL LIGHT WITHIN REACH.
[2025-03-26 07:37] VITALS: BP 135/85
[2025-03-26] MEDS ORDERED: Folic Acid 1 MG TAB PO SCH (09:00)
[2025-03-26 16:24] VITALS: BP 110/78
--- NOTE | 2025-03-26 17:36 | NUR ---
SUMMARY- PT AAOX1 THIS AM, BUT NOW IS AAOX3 TONIGHT. PT'S RESTRAINTS DC AT 0800. NO ISSUES WITH PT'S BEHAVIOR SINCE. CIWA=6=12 THIS SHIFT. PT CALM AND COOPERATIVE THIS SHIFT. PT IS UNSTEADY ON FEET. ON RA. X1 ASSIST WITH WALKER AND GAIT BELT. NO COMPLAINTS OF PAIN. NO ACUTE EVENTS THIS SHIFT. PT UP TO BATHROOM TO CLEAN SELF AND BRUSH TEETH, ETC. WITH HELP. GOOD APPETITE.
[2025-03-26 19:31] VITALS: BP 119/74
[2025-03-27 03:01] VITALS: BP 152/88
--- NOTE | 2025-03-27 04:51 | NUR ---
PT MAKING SEXUALLY INAPPROPRIATE COMMENTS AT THE BEGINNING OF THE SHIFT. PT WAS REDIRECTABLE WITH HIS BEHAVIOR. HE HAS BEEN CONTINENT OF URINE T/O THIS SHIFT AND STEADY ON HIS FEET WITH BED ALARM ON. HE HAS BEEN A&OX3, PT UNAWARE OF DATE OR YEAR. CIWA DONE T/O THE SHIFT AND PRN MEDS GIVEN RX. PT HAS HAD HALLUCINATION, YELLING OUT WITH EXTREME AGITATIONS, TREMORS AND DELUSIONS NOTED. LIBRIUM WAS EFFECTIVE IN DECREASING CIWA SCORE AND EASING SYMPTOMS.
[2025-03-27 07:50] VITALS: BP 121/77
[2025-03-27 07:54] LABS: BASOPHILS ABSOLUTE AUTO 0.06 K/mm3 (0.00-0.23); BASOPHILS PERCENT AUTO 1 % (0-2); EOSINOPHILS ABSOLUTE AUTO 0.26 K/mm3 (0.00-0.68); EOSINOPHILS PERCENT AUTO 4 % (0-6); Hematocrit 32.6 % (37.0-53.0); Hemoglobin 9.7 g/dL (13.5-17.5); IMMATURE GRAN ABSOLUTE AUTO 0.04 K/mm3 (0.00-0.10); IMMATURE GRAN PERCENT AUTO 1 % (0-1); LYMPHOCYTES ABSOLUTE AUTO 0.78 K/mm3 (0.84-5.20); LYMPHOCYTES PERCENT AUTO 11 % (21-46); MONOCYTES ABSOLUTE AUTO 1.40 K/mm3 (0.16-1.47); MONOCYTES PERCENT AUTO 20 % (4-13); Mean Corpuscular HGB Conc 29.8 g/dL (31.5-36.5); Mean Corpuscular Volume 85 fL (80-100); NEUTROPHILS ABSOLUTE AUTO 4.53 K/mm3 (1.96-9.15); NEUTROPHILS PERCENT AUTO 64 % (41-73); NRBC ABSOLUTE 0.00 K/mm3 (0.00-0.02); NRBC Auto 0.0 /100 WBC (0.0-0.2); Platelet Count 96 K/mm3 (150-400); RDW Coefficient Variation 19.3 % (11.7-14.2); RDW Standard Deviation 58.5 fL (35.1-46.3)
[2025-03-27 08:34] LABS: Anion Gap 9.0 mmol/L (3-11); Blood Urea Nitrogen 10.0 mg/dL (8-24); CO2, Blood 23.0 mmol/L (21-32); Calcium, Blood 9.2 mg/dL (8.5-10.1); Chloride, Blood 107.0 mmol/L (98-108); Creatinine, Blood 0.72 mg/dL (0.60-1.20); Glucose, Blood 90.0 mg/dL (70-99); Potassium, Blood 3.6 mmol/L (3.5-5.5); Sodium, Blood 135.0 mmol/L (136-145)
[2025-03-27] MEDS ORDERED: FERSU300 PO (12:05)
[2025-03-27] MEDS ORDERED: FOLI1 PO (12:05)
[2025-03-27] MEDS ORDERED: PANT40 PO (12:06)
[2025-03-27] MEDS ORDERED: LISI20 PO (12:06)
[2025-03-27] MEDS ORDERED: Naltrexone HCl50 MG PO (12:06)
[2025-03-27] MEDS ORDERED: B-1100 M1 PO (12:07)
--- NOTE | 2025-03-27 12:54 | NUR ---
ASSUMED CARE PT IS A/O X 3-4 TODAY A LITTLE DELAYED IN SPEECH BUT ANSWERS APPROPRIATLY. HAS NO C/O PAIN CALL LIGHT WITHIN REACH AND MAKES NEEDS KNOWN. DR CABRAL AT BEDSIDE, POSSIBLE DISCHARGED DISCUSSED WITH PT. CARE MANAGEMENT TO SPEAK WITH BROTHER AND FOR DISCHARGE INSTRUCTIONS. PT THIS MORNING IS INDEPENDANT IN ROOM AND WAS ABLE TO TAKE A SHOWER WITHOUT ASSISTENCE.
--- NOTE | 2025-03-27 12:58 | NUR ---
DISCHARGE INSTRUCTIONS GIVEN PT WHEELED DOWNSTAIRS
== END 2025-03-27 12:22 | disposition home health service (06) | DRG 897 ==
LOC: ER 16:32 → ICUE 19:29 → MEDS 03-24 16:01
PROVIDERS: Emergency Medicine; Internal Medicine; Nurse Practitioner Acute Care; Student in an Organized Health Care Education/Training Program; ADMIT Student in an Organized Health Care Education/Training Program
DX: F10.231 Alcohol dependence with withdrawal delirium (principal); E87.20 Acidosis, unspecified; E87.1 Hypo-osmolality and hyponatremia; I10 Essential (primary) hypertension; E87.6 Hypokalemia; K70.30 Alcoholic cirrhosis of liver without ascites; D69.59 Other secondary thrombocytopenia; D63.8 Anemia in other chronic diseases classified elsewhere; Z87.891 Personal history of nicotine dependence
CPT/HCPCS: 36415; 70450; 71045; 80048; 80053; 80320; 82010; 82140; 82550; 83605; 83690; 83735; 85025; 85027; 85610; 93005; 93010; 94760; 96374; 96375; 96376; 97112; 97116; 97162; 97165; 97530; 97535; 99285-25; A9270; G0480; J1630; J2060; J2405; J2470; J3360; J3411; J3480; J7030; J7050